=== PATIENT | male | born 1995 | race Two or more races ===

== ENCOUNTER 2017-11-16 12:15 | Emergency (ER) | payer MEDICAID ==
[~2017-11-16] VITALS: Ht 185.4 cm; Wt 74.8 kg
[2017-11-16 13:35] VITALS: BP 156/106
== END 2017-11-16 15:05 | disposition home or self-care (01) ==
LOC: ER 12:15
DX: M79.641 Pain in right hand (principal); F17.200 Nicotine dependence, unspecified, uncomplicated; Z48.00 Encounter for change or removal of nonsurgical wound dressing